=== PATIENT | male | born 1960 | race Caucasian/White ===

== ENCOUNTER 2016-10-21 04:19 | Emergency (ER) | payer OTHER ==
[~2016-10-21 04:19] MED LIST: ASPIRIN EC81 MG PO; DIOVAN160 MG PO; LEVAQUIN750 MG PO; NEURONTIN800 MG PO; NITROSTAT0.4 MG SL; PERCOCET 7.5-31 EACH PO; PRILOSEC OTC20 MG PO; PROAIR HFA8.5 GM IH; SIMVASTATIN40 MG PO; TUDORZA PRESS400 MCG IH; ZOCOR40 MG PO
== END 2016-10-21 06:45 | disposition home or self-care (01) ==
LOC: ER 04:19
DX: J18.9 Pneumonia, unspecified organism (principal); J44.9 Chronic obstructive pulmonary disease, unspecified; I25.2 Old myocardial infarction; I10 Essential (primary) hypertension; Z95.1 Presence of aortocoronary bypass graft; F17.210 Nicotine dependence, cigarettes, uncomplicated; Z79.82 Long term (current) use of aspirin; Z79.899 Other long term (current) drug therapy; Z88.8 Allergy status to other drugs, medicaments and biological substances
CPT/HCPCS: 36415; 87502; 96365; 96375; J0696